=== PATIENT | male | born 1960 | race Caucasian/White ===

== ENCOUNTER → 2016-07-05 | Outpatient (CLI) | payer BC ==
[2016-07-05 07:56] LABS: ALT 49 U/L (21-72); AST 33 U/L (17-59); Cholesterol 195 mg/dL (<200); Creatine Kinase 176 U/L (55-170); HDL Cholesterol 45 mg/dL (40-60); Triglycerides 144 mg/dL (<150)
== END | disposition home or self-care (01) ==
LOC: LABWHC1 07:16
PROVIDERS: ATTEND Internal Medicine Interventional Cardiology
DX: E78.2 Mixed hyperlipidemia (principal)
CPT/HCPCS: 36415; 80061; 82550; 84450; 84460

== ENCOUNTER 2019-09-03 10:49 | Day surgery (SDC) | payer BC ==
[2019-08-31 10:05] VITALS: BMI 34.2
[~2019-09-03 10:49] MED LIST: LACTATED RINGERS 1,000 ML IV SCH; LIDOCAINE 1% (10MG/ML) FOR IV START INTRADERMA PRN
[2019-09-03 11:03] VITALS: TEMP 96.2
[2019-09-03] MEDS ORDERED: PROPOFOL 10 MG/ML 20 ML VIAL IV ONE (11:46)
--- NOTE | 2019-09-03 12:28 | P.PCN ---
Date of Procedure: 09/03/19 Description of Procedure: BRIEF HISTORY: Patient is a 58-year-old male presenting for outpatient colonoscopy for follow- up of a positive Cologard. No prior colonoscopy reported. No change in bowel habits, blood per rectum or family history of colon cancer. PROCEDURE PERFORMED: Colonoscopy with polypectomy. PREOPERATIVE DIAGNOSIS: Positive Cologard, no prior colonoscopy. ESTIMATED BLOOD LOSS: Minimal. IV sedation per Anesthesia. PROCEDURE: After informed consent was obtained, the patient, was brought into the endoscopy unit. IV sedation was administered by Anesthesia under continuous monitoring. Digital rectal examination was normal. Initially the Olympus CF-190 flexible video colonoscope was then inserted in the rectum, gradually advanced into the cecum without any difficulty. Careful examination was performed as the scope was gradually being withdrawn. Ileocecal valve and the appendiceal orifice were visualized and appeared normal. Prep was excellent. Mucosa of the cecum, ascending colon, transverse colon, descending colon, sigmoid colon, and rectum appeared normal. A flat 5 mm superficial ascending colon ulcer was noted just distal to the ileocecal valve with biopsies taken. A pedunculated 2.5 cm sigmoid colon polyp located 30 cm from the anal verge was removed with hot snare polypectomy with 2 passes needed for complete removal of the polyp. [address] at the base of the stalk for hemostasis. A few scattered diverticula noted in the sigmoid colon. Retroflexion was performed in the rectum and no lesions were seen. The patient tolerated the procedure well. IMPRESSION: Large pedunculated sigmoid colon polyp located at 30 cm from the anal verge removed completely with hot snare polypectomy. Mild sigmoid diverticulosis. RECOMMENDATIONS: Findings of this examination were discussed with the patient. Okay to resume diet. Okay to resume medications. Await pathology from polypectomy. Would recommend patient follow up in clinic next week for results of polypectomy. Patient will likely need repeat colonoscopy in 1 year due to piecemeal resection of the large sigmoid polyp.
[2019-09-03 12:52] VITALS: BP 133/70; PULSE 59; RESP 20
== END 2019-09-03 13:00 | disposition home or self-care (01) ==
LOC: ORWHC2ENDO 10:49
PROVIDERS: ATTEND Internal Medicine
DX: D12.5 Benign neoplasm of sigmoid colon (principal); K63.3 Ulcer of intestine; K57.30 Diverticulosis of large intestine without perforation or abscess without bleeding; I10 Essential (primary) hypertension; E78.5 Hyperlipidemia, unspecified; G47.33 Obstructive sleep apnea (adult) (pediatric); K21.9 Gastro-esophageal reflux disease without esophagitis; Z87.891 Personal history of nicotine dependence; Z91.09 Other allergy status, other than to drugs and biological substances; Z79.899 Other long term (current) drug therapy; Z79.82 Long term (current) use of aspirin; Z98.890 Other specified postprocedural states; Z87.19 Personal history of other diseases of the digestive system
CPT/HCPCS: 45385; 45380; 88305; J2704; 45382

== ENCOUNTER → 2022-01-29 | Outpatient (CLI) | payer OTHER ==
[2022-01-29 11:06] LABS: ALT 115 U/L (10-49); AST 76 U/L (14-35); Chol/HDL Ratio 8.74 Ratio
== END | disposition home or self-care (01) ==
LOC: LABWHC1 07:51
PROVIDERS: ATTEND Internal Medicine Interventional Cardiology
DX: E78.2 Mixed hyperlipidemia (principal)
CPT/HCPCS: 36415; 80061; 84450; 84460